=== PATIENT | male | born 1965 | race Caucasian/White ===

== ENCOUNTER 2024-06-13 15:34 | Emergency (ER) | payer OTHER ==
[~2024-06-13] VITALS: Ht 180.3 cm; Wt 93.9 kg
[2024-06-13] MEDS ORDERED: CYCLOBENZAPRINE 10 MG TABLET ONE (16:51)
[2024-06-13] MEDS ORDERED: predniSONE 20 MG TABLET ONE (16:51)
[2024-06-13] MEDS ORDERED: KETOROLAC TROMETHAMINE 15 MG/ML VIAL ONE (16:51)
[2024-06-13] MEDS: predniSONE 20 MG TABLET PO ONE (17:00)
[2024-06-13] MEDS: KETOROLAC TROMETHAMINE 15 MG/ML VIAL IM ONE (17:00)
[2024-06-13] MEDS: CYCLOBENZAPRINE 10 MG TABLET PO ONE (17:00)
[2024-06-13] MEDS ORDERED: PRED50TA PO (18:16)
[2024-06-13] MEDS ORDERED: CYCL5TAB PO (18:16)
[2024-06-13] MEDS ORDERED: IBUP-1490 PO (18:17)
[2024-06-13 18:34] VITALS: BP 134/72; TEMP 99.1; O2SAT 98
== END 2024-06-13 18:35 | disposition home or self-care (01) ==
LOC: ER 15:42
DX: M51.26 Other intervertebral disc displacement, lumbar region (principal); M48.061 Spinal stenosis, lumbar region without neurogenic claudication; Z79.52 Long term (current) use of systemic steroids; W01.0XXA Fall on same level from slipping, tripping and stumbling without subsequent striking against object, initial encounter; Y93.89 Activity, other specified; Y92.89 Other specified places as the place of occurrence of the external cause; Y99.8 Other external cause status
CPT/HCPCS: 99285; 72131; 96372; J1885; J7512

== ENCOUNTER 2024-09-23 13:05 | Emergency (ER) | payer OTHER ==
[~2024-09-23] VITALS: Ht 180.3 cm; Wt 94.8 kg
[~2024-09-23 13:05] MED LIST: CYCL5TAB PO; IBUP-1490 PO; PRED50TA PO
[2024-09-23 13:41] VITALS: BP 152/82; TEMP 98.6; O2SAT 97
[2024-09-23] MEDS ORDERED: IBUP-1490 PO (14:13)
[2024-09-23] MEDS ORDERED: AMOX-430 PO (14:13)
[2024-09-23] MEDS ORDERED: ACETAMINOPHEN ES 500 MG TABLET ONE (14:22)
[2024-09-23] MEDS ORDERED: IBUPROFEN 400 MG TABLET ONE (14:23)
[2024-09-23] MEDS: ACETAMINOPHEN ES 500 MG TABLET PO ONE (14:38)
[2024-09-23] MEDS: IBUPROFEN 400 MG TABLET PO ONE (14:38)
== END 2024-09-23 14:38 | disposition home or self-care (01) ==
LOC: ER 13:21
DX: L03.113 Cellulitis of right upper limb (principal); M79.621 Pain in right upper arm; R11.0 Nausea; R50.9 Fever, unspecified; Z79.52 Long term (current) use of systemic steroids; Z87.19 Personal history of other diseases of the digestive system

== ENCOUNTER 2024-10-22 12:50 | Emergency (ER) | payer OTHER ==
[~2024-10-22] VITALS: Ht 180.3 cm; Wt 93.0 kg
[~2024-10-22 12:50] MED LIST changes: +AMOX-430 PO
[2024-10-22 13:39] LABS: PLATELET COUNT (AUTO) 253 K/uL (150-450); RED BLOOD CELL COUNT(AUTO) 5.91 MIL/uL (4.5-6.0); RED CELL DISTRIBUTION WIDTH 15.5 % (11.5-15.0); WHITE BLOOD COUNT (AUTO) 9.9 K/uL (4.3-11.0)
[2024-10-22 13:41] LABS: APPEARANCE,URINE CLEAR (CLEAR); BLOOD, URINE NEGATIVE Ery/uL (NEGATIVE); LEUKOCYTE ESTERASE ,URINE NEGATIVE (NEGATIVE); NITRITE, URINE NEGATIVE (NEGATIVE); UGLUCOSE NEGATIVE (NEGATIVE)
[2024-10-22 13:45] LABS: CALCIUM, SERUM 9.4 mg/dL (8.5-10.1); CREATININE 1.1 mg/dL (0.6-1.3); SODIUM SERUM 136.0 mmol/L (136-145); UREA NITROGEN, BLOOD 22.0 mg/dL (7-18)
[2024-10-22 13:51] LABS: ASPARTATE AMINOTRANSFERASE 24.0 U/L (15-37); TOTAL PROTEIN, SERUM 7.7 g/dL (6.4-8.2)
[2024-10-22 13:55] LABS: ADD URINE CULTURE NO; SQUAMOUS EPITHELIAL CELL,UR None Seen /HPF (None Seen)
[2024-10-22] MEDS ORDERED: ONDA4TAB5 PO (15:07)
[2024-10-22 15:53] VITALS: BP 151/80; TEMP 98.5; O2SAT 98
== END 2024-10-22 15:30 | disposition home or self-care (01) ==
LOC: ER 12:59
DX: G89.29 Other chronic pain (principal); R10.9 Unspecified abdominal pain; R11.0 Nausea; Z79.52 Long term (current) use of systemic steroids; Z87.19 Personal history of other diseases of the digestive system
CPT/HCPCS: 36415; 76705-TC; 80048-TC; 80076-TC; 81001; 83690-TC; 85025-TC; 87086-TC